=== PATIENT | male | born 1925 ===

== ENCOUNTER 2016-07-09 07:56 | Inpatient (IN) | payer BC ==
[2016-07-08 11:38] LABS: BASOPHILS 0.4 %; BASOPHILS ABSOLUTE 0.03 10/3/uL (0.0-0.16); EOSINOPHILS 1.6 %; EOSINOPHILS ABSOLUTE 0.12 10/3/uL (0.0-0.53); HEMATOCRIT 34.7 % (40.0-51.0); HEMOGLOBIN 11.3 g/dL (13.6-17.8); IMMATURE GRANULOCYTES 0.3 %; IMMATURE GRANULOCYTES ABSOLUTE 0.02 10/3/uL (0.0-0.11); LYMPHOCYTES 14.6 %; LYMPHOCYTES ABSOLUTE 1.08 10/3/uL (0.67-4.30); MEAN CORPUS HGB CONC 32.6 g/dL (32.0-36.0); MEAN CORPUSCULAR HEMOGLOB 29.7 pg (26.0-34.0); MEAN CORPUSCULAR VOLUME 91.3 fL (80-100); MEAN PLATELET VOLUME 8.2 fL (9.2-13.0); MONOCYTES 11.6 %; MONOCYTES ABSOLUTE 0.86 10/3/uL (0.21-1.20); NEUTROPHILS 71.5 %; NEUTROPHILS ABSOLUTE 5.28 10/3/uL (2.02-8.40); PLATELET COUNT 363 10/3/uL (150-400); WHITE BLOOD CELLS 7.4 10/3/uL (4.5-10.5)
[2016-07-08 11:39] LABS: MANUAL DIFF NO %; RBC DISTRIBUTION WIDTH 16.4 % (12.0-16.0)
[2016-07-08 11:44] LABS: PROTIME (NOT ORD) 13.4 SEC (12.0-14.5)
[2016-07-08 11:45] LABS: PARTIAL THROMBO TIME 29.9 SEC (22.5-37.2)
[2016-07-08 11:53] LABS: CALCIUM, SERUM 9.1 MG/DL (8.5-10.4); CHLORIDE, SERUM 103 MMOL/L (96-112); CO2 (CARBON DIOXIDE) 27 MMOL/L (24-34); CREATININE 0.54 MG/DL (0.70-1.30); GFR AFRICAN AMERICAN 108 ML/MIN (>=60); GFR NON AFRICAN AMERICAN 93 ML/MIN (>=60); GLUCOSE, SERUM 88 MG/DL (60-99); POTASSIUM, SERUM 4.4 MMOL/L (3.5-5.3); SODIUM, SERUM 137 MMOL/L (135-148)
[2016-07-08 11:57] LABS: BUN (BLOOD UREA NITROGEN) 7 MG/DL (6-23)
--- NOTE | ~2016-07-09 | PREOPHP ---
PreOp History and Physical [address] [place]. [address] NAME: CAPRICE SKELTON : [birth year] STATUS : PRE IN PAT#: [id number] AGE: 89 ADM/REG DATE : MR#: [id number] REPORT SERV DATE: 07/08/16 DICTATED BY: JAYA GALE DATE: 07/08/16 REPORT STATUS : Draft TRANSCRIBED BY: MODL DATE: 07/08/16 CHIEF COMPLAINT: Urinary retention. HISTORY OF PRESENT ILLNESS: Mr. Skelton is an 89-year-old white male, who developed urinary retention approximately two weeks ago. He failed a voiding trial. He was evaluated in my office and found to have a prostate measuring approximately 212 mL. Different options regarding his management were proposed to the patient. He has decided to proceed with a laparoscopic robot-assisted simple prostatectomy. He will be admitted after that procedure. The patient states that he was diagnosed with prostate cancer 25 years ago. He elected to treat it with dietary modifications. Since then, he has had no evidence of disease according to the patient. He has a long history of obstructive urinary symptoms leading up to the urinary retention. PAST MEDICAL HISTORY: Remarkably negative. PAST SURGICAL HISTORY: Tonsillectomy and herniorrhaphy. MEDICATIONS: None. ALLERGIES: NONE. SOCIAL HISTORY: Denies drug, alcohol, or tobacco abuse. FAMILY HISTORY: Unknown. 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 PHYSICAL EXAMINATION: GENERAL: Shows a well-developed, well-nourished thin white male, in no acute distress. He has excellent cognitive function. He is afebrile. He is completely ambulatory and self- sufficient. VITAL SIGNS: His vital signs are stable. NECK: Supple. LUNGS: Clear. HEART: Regular rate and rhythm. ABDOMEN: Soft and nontender. GENITOURINARY: Catheter in place draining clear urine. Testes descended, nontender. Prostate extremely large, smooth, no nodules. LOWER EXTREMITIES: No deformities. IMPRESSION: Massive benign prostatic hypertrophy in an 89-year-old male with possible history of prostate cancer. PLAN: Laparoscopic robot-assisted simple prostatectomy. Potential complications of bleeding, infection, urinary incontinence, bladder neck obstruction, loss of ejaculate, PreOp History and Physical [address] [address] NAME: CAPRICE SKELTON : [birth year] STATUS : PRE IN PAT#: [id number] AGE: 89 ADM/REG DATE : MR#: [id number] REPORT SERV DATE: 07/08/16 DICTATED BY: JAYA GALE DATE: 07/08/16 REPORT STATUS : Draft TRANSCRIBED BY: MODL DATE: 07/08/16 erectile dysfunction, and injury to adjacent structures such as bladder, ureters, rectum, colon, intestine, nerves, as well as bowel obstruction, complications have all been explained to the patient. He both manually and verbally consents to proceed. PF/MODL Jaya Gale M.D. / [id number] CC: Bob Nagel JOHN C.
--- NOTE | ~2016-07-09 | DS ---
Discharge Summary [facility] [address] [facility] [place]. [address] NAME: CAPRICE BOLANOS : [birth year] STATUS : DIS IN PAT#: [id number] AGE: 89 ADM/REG DATE : 07/09/16 MR#: [id number] REPORT SERV DATE: 07/14/16 DICTATED BY: TRAVIS GALE DATE: 07/13/16 REPORT STATUS : Draft TRANSCRIBED BY: MODL DATE: 07/13/16 ADMISSION DATE: 07/09/2016 DISCHARGE DATE: 07/13/2016 DIAGNOSES: 1. Urinary retention. 2. Massive benign prostatic hypertrophy. 3. Postoperative bleeding (blood loss anemia). PROCEDURES DURING THIS HOSPITALIZATION: 1. Laparoscopic robot-assisted simple prostatectomy. 2. Cystoscopy, fulguration of prostatic fossa, re-exploration laparoscopic robot clot evacuation for prostatic fossa. HISTORY OF PRESENT ILLNESS: For complete history of present illness, please see dictated H and P. HOSPITAL COURSE: The patient underwent the laparoscopic robot-assisted simple prostatectomy on the afternoon of 07/09/2016. In recovery room, he developed some pretty significant postoperative bleeding. He was returned to the operating room, where he underwent cystoscopy. Fulgurated the bleeders, but this failed to clear him. I re-explored laparoscopically/robotically. I evacuated quite a bit of clot blood from the bladder and the prostatic fossa. I over sewed much of the prostatic capsule. This seemed to control the oozing/bleeding. He stabilized after that point. He ended up receiving a total of 5 units packed red blood cells, a 6 pack a platelet, 2 units of fresh frozen plasma. He was left intubated overnight because of the prolonged surgery. He was in the intensive care unit. The morning following surgery, his urine remained clear on continuous bladder irrigation. He was awakened and extubated. He recovered without incident from that point forward. He stayed one-day in the ICU and was transferred to floor. The Joey drain had little output so it was removed. The continuous bladder irrigation was weaned. On the day of surgery, the urine was clear off continuous bladder irrigation. He was on a regular diet. His H and H were stable at around 8.5 and 24. Discharge medications are going to be Tylenol #3 one p.o. q.4 hours p.r.n. pain, dispensed #14. Follow up will be in two weeks with Dr. Gale for catheter removal. Instructions, no driving. His pathology revealed 136 g benign adenoma. PF/MODL Travis Gale M.D. / [id number] CC: Discharge Summary [address] [place] [address] NAME: CAPRICE BOLANOS : [birth year] STATUS : DIS IN PAT#: [id number] AGE: 89 ADM/REG DATE : 07/09/16 MR#: [id number] REPORT SERV DATE: 07/14/16 DICTATED BY: TRAVIS GALE DATE: 07/13/16 REPORT STATUS : Draft TRANSCRIBED BY: KYAW DATE: 07/13/16 Bob Nagel
--- NOTE | ~2016-07-09 | OP ---
Record Of Operation [facility] [address] [place]. [address] NAME: CAPRICE BOLANOS : [birth year] STATUS : ADM IN PAT#: [id number] AGE: 89 ADM/REG DATE : 07/09/16 MR#: [id number] REPORT SERV DATE: 07/09/16 DICTATED BY: JAYA GALE DATE: 07/09/16 REPORT STATUS : Draft TRANSCRIBED BY: MODL DATE: 07/09/16 DATE OF PROCEDURE: 07/09/2016 PREOPERATIVE DIAGNOSES: Urinary retention and massive benign prostatic hypertrophy. POSTOPERATIVE DIAGNOSES: Urinary retention and massive benign prostatic hypertrophy. PROCEDURE: Laparoscopic robot-assisted simple prostatectomy. SURGEON: Jaya Gale M.D. ENTERTAINMENT PRODUCTION PROFESSIONAL: Emile Harry. ANESTHESIA: General and local. ESTIMATED BLOOD LOSS: 250 mL. FLUID REPLACEMENT: 3 L of crystalloid. DRAINS: A 24-Kuwaiti three-way Gale catheter with 45 mL of sterile water inflated in the catheter balloon and a 15-mm Joey drain in the prevesical space. INDICATION: An 89-year-old male with urinary retention and prostate measuring over [address] scan. TECHNIQUE: The patient was identified and brought to the operating room, administered general anesthetic agent by the Anesthesia Service and intubated. He was positioned in the dorsal lithotomy position. The entire abdomen, penis, groin, scrotum, and perineum were prepped and draped in usual sterile fashion. Marcaine 0.5% plain was used to infiltrate all laparoscopic port sites. A 4-cm skin incision was made above the umbilicus, carried down to the rectus fascia. Holding sutures were placed in the rectus fascia and the fascia was incised transversely. The underlying peritoneum was identified and opened sharply. A balloon trocar was placed in the peritoneal space and a pneumoperitoneum was created by insufflating carbon dioxide. The abdominal pressure was raised to 15 mmHg and held there through the entire case until otherwise specified. Three robot arm ports and two pediatric medical assistant ports were placed under direct laparoscopic vision while the patient was in steep Trendelenburg. Once the ports were in position, the da Zakiya robot was brought to the table and mated to the ports. A 16-Kuwaiti Gale catheter had been passed in the bladder. I divided the median umbilical ligaments and urachus near the umbilicus. I swept the bladder off the anterior abdominal wall and symphysis pubis. I opened the peritoneum just lateral to the median umbilical ligaments on each side of the vasa deferentia bilaterally. An anterior cystotomy was made. Holding sutures were placed in the left and right side of the detrusor muscle. The bladder was opened and inspected. There was a large prostate, not Record Of Operation [address] [place]. [address] NAME: CAPRICE BOLANOS : [birth year] STATUS : ADM IN PAT#: [id number] AGE: 89 ADM/REG DATE : 07/09/16 MR#: [id number] REPORT SERV DATE: 07/09/16 DICTATED BY: JAYA GALE DATE: 07/09/16 REPORT STATUS : Draft TRANSCRIBED BY: KYAW DATE: 07/09/16 much of it was intravesical. The ureteral orifices were identified. The bladder was severely trabeculated. I cauterized the epithelium circumferentially around the bladder neck with a Bovie cautery. I then dissected down into the capsule through the adenoma to the capsule of the prostate circumferentially. I mobilized the prostate circumferentially and all the way out to the apex. I eventually came across the urethra sharply. The adenoma was delivered out of the wound. It was placed in a specimen retrieval bag and held for later retrieval. I lowered the abdominal pressure down to 7 mmHg. I over sew some bleeders along the lateral borders of the prostatic capsule and at the posterior pedicles bilaterally. I also suture ligate anteriorly. I used a 3-0 PDS and 3-0 Monocryl. Once fastidious hemostasis had been achieved, I inserted a new 24-Kuwaiti three-way Gale catheter and positioned the balloon into the prostatic fossa. I closed the urothelium of the cystotomy with running 3-0 V-Loc. I then closed the detrusor with running 2-0 V-Loc. I filled the bladder with 240 mL of saline. It held without extravasation. I then connected to normal saline continuous bladder irrigation. A 45 mL of sterile water inflated to catheter balloon. The instruments were taken out of the robot arm port and a 15-mm Joey drain was placed through that port. I lowered the abdominal pressure down to 7 mmHg when I was obtaining hemostasis. The instrument was taken out of the robotic arm port. A 15-mm Joey drain was placed through that port. It was left in the prevesical space and the port was removed. The drain was sutured to skin with 2-0 Prolene. The da Zakiya robot was undocked. I transferred the strings of the specimen bag out through the umbilical port. The pediatric medical assistant 12-mm port was removed and the fascia there was closed with Dejuan-Memo endoscopic closure system. All the ports were removed under low pressure. No port site bleeding was noted. I had to extend my transverse incision in the fascia by 3 cm in each direction. I then delivered the specimen out through the wound. I closed the fascia with [id number] 0 Vicryl sutures. The subcutaneous tissue of all ports was irrigated copiously. The skin of all ports was closed with 4-0 Monocryl. Dressings were applied. The catheter was secured. The patient was awakened and taken to the recovery unit in stable and satisfactory condition. PF/MODL Jaya Gale M.D. / [id number] CC: Bob Nagel JOHN C.
--- NOTE | ~2016-07-09 | OP ---
Record Of Operation [facility] [address] [place]. [address] NAME: CAPRICE SKELTON : [birth year] STATUS : ADM IN PAT#: [id number] AGE: 89 ADM/REG DATE : 07/09/16 MR#: [id number] REPORT SERV DATE: 07/10/16 DICTATED BY: JAYA GALE DATE: 07/10/16 REPORT STATUS : Draft TRANSCRIBED BY: MODL DATE: 07/10/16 DATE OF PROCEDURE: 07/09/2016 PREOPERATIVE DIAGNOSIS: Postoperative bleeding (status post laparoscopic robot-assisted simple prostatectomy). POSTOPERATIVE DIAGNOSIS: Postoperative bleeding (status post laparoscopic robot-assisted simple prostatectomy). PROCEDURE: 1. Cystoscopy with fulguration of prostatic fossa. 2. Re-exploration robotic laparoscopy with evacuation of clot from prostatic fossa and over-sew of bleeding vessels. SURGEON: Jaya Gale M.D. JUNIOR MANUFACTURING ENGINEER: Ciara Fleming. ANESTHESIA: General. BLOOD LOSS: Total estimated at 600 mL. FLUIDS: 1.2 L of crystalloid, 5 units packed red blood cells, 4 units of fresh frozen plasma, and 6-pack of platelets with 60 mg of Lasix IV. INDICATION: Mr. Skelton is an 89-year-old male, who had a laparoscopic robot-assisted simple prostatectomy earlier in the day on 07/09/2016. At the end of that procedure, the urine developed some fairly significant hematuria while on continuous bladder irrigation. Conservative measures of inflating the more fluid into the balloon and placing it on traction did not relieve the bleeding. It is felt to be significant enough to return to the operating room. STEPS: We returned up to the operating room, and I proceeded with cystoscopy. Really, there were no significant findings on cystoscopy. He was clear at the end of cystoscopy, but rather shortly before being extubated became bloody again. We again went through some conservative measures of traction and digital pressure through the rectum. These failed to keep him clear, so I re-explored him. On re-exploration, really found quite a bit of blood in the prostatic fossa, but no active arterial bleeding. I over-sewed many areas in the prostatic fossa. TECHNIQUE: The patient was brought to the operating room. Gale catheter was removed. He was intubated and placed into the dorsal lithotomy position. The penis, groin, scrotum, and perineum were prepped and draped in the usual sterile fashion. A 28-Colombian continuous flow resectoscope was placed into the bladder with an obturator. The obturator was removed and the George resectoscope with the rollerball was inserted. Inside the prostatic fossa, there was blood. I used the Truveris evacuators and evacuated quite a bit of blood out of the Record Of Operation [address] [place]. [address] NAME: CAPRICE SKELTON : [birth year] STATUS : ADM IN PAT#: [id number] AGE: 89 ADM/REG DATE : 07/09/16 MR#: [id number] REPORT SERV DATE: 07/10/16 DICTATED BY: JAYA GALE DATE: 07/10/16 REPORT STATUS : Draft TRANSCRIBED BY: KYAW DATE: 07/10/16 prostatic fossa. I then inspected and there was a constant amount blood in the field, but no arterial bleeding. No visualized area of bleeding. I used the rollerball and cauterized different areas along the prostatic capsule. I inspected the bladder neck closely and inspected the bladder as well. I see no bleeding coming from there. When complete, the urine is clear. I removed the resecting sheath and placed a 24-Colombian three-way Gale catheter. I inserted 30 mL of sterile water into the catheter balloon, connected to continuous bladder irrigation. It runs clear for a while, but then rather suddenly becomes quite bloody again. The patient had not yet been extubated. After manually irrigating him clear again and using digital rectal pressure, the bleeding persisted. At this point, I did not feel we needed to re-explore. He was then transferred onto the robotic bed and repositioned into the lithotomy position. He was appropriately padded and secured to the table. The Gale catheter was removed. The entire lower abdomen, penis, groin, scrotum, and perineum were re-prepped and draped in usual sterile fashion. I opened all the previous incisions and replaced the trocars. Pneumoperitoneum was created. I put the da Zakiya laparoscope through the trocar. Inside the belly, there was virtually no blood, minimal fluid, but there was swelling of the intestines. I docked with da Zakiya robot and opened the bladder by opening the previously closed anterior cystotomy. There was quite a bit of blood in the bladder and this was sucked and irrigated clear. Once I evacuated all the blood, I very closely inspected the prostatic capsule. I did this with the pressure initially elevated at 15 mmHg. I see no bleeding at 15. I over-sew an area of "ooze" on the right posterior prostatic capsule near the posterior pedicle. I oversew anteriorly. I used a 30 degree up lens and a 30-degree down lens. I also oversewed part of the floor of the prostate near the bladder neck and anteriorly on the capsule. I bring the pressure all the way down to 3 mmHg, I inspected for bleeding. I see no bleeding at 3 mmHg with both the 30 up and 30 down lens. Once I am satisfied that I have done everything I can to stop the bleeding, I reinserted new 24-Colombian three-way Gale catheter. 15 mL of sterile water inflated into the catheter balloon. The bladder was then closed in two layers with 2-0 V- Loc. I then added another 15 mL of sterile water to the catheter balloon, began continuous bladder irrigation, it remained clear. The instruments taken out of the robot arm port and I reinserted a Joey drain through this port. The ports removed and the drain sutured to skin with 2-0 Prolene. I irrigated much of the blood out of the belly that I can. I then removed the ports under low pressure. No port site bleeding. I closed the assistance port with a Dejuan-Memo endoscopic closure system. I closed the midline umbilical port with [id number] 0 Vicryl sutures. The subcutaneous tissue of all ports irrigated copiously. I closed the skin with skin elton. The patient was then left intubated and taken to the ICU in guarded condition. PF/MODL Jaya Gale M.D. / [id number] CC: Record Of Operation [address] [place]. [address] NAME: CAPRICE SKELTON ELINA : [birth year] STATUS : ADM IN PAT#: [id number] AGE: 89 ADM/REG DATE : 07/09/16 MR#: [id number] REPORT SERV DATE: 07/10/16 DICTATED BY: JAYA GALE DATE: 07/10/16 REPORT STATUS : Draft TRANSCRIBED BY: KYAW DATE: 07/10/16 Jaya Gale M.D. Steve Oseguera
--- NOTE | ~2016-07-09 | CN ---
Consultation Report [facility] [address] [place]. [address] NAME: CAPRICE SKELTON : [birth year] STATUS : ADM IN [facility]#: [id number] AGE: 89 ADM/REG DATE : 07/09/16 MR#: [id number] REPORT SERV DATE: 07/10/16 DICTATED BY: UNRULY HOWARD DATE: 07/10/16 REPORT STATUS : Draft TRANSCRIBED BY: MODL DATE: 07/10/16 CONSULTATION DATE OF CONSULTATION: 07/10/2016 TIME: 2405 hours. Seen in MICU bed 11. HISTORY OF PRESENT ILLNESS: Mr. Skelton is an 89-year-old white male, who developed urinary retention, went to the OR, had a very enlarged prostate removed. Post-removal, he began to have some bleeding, went back and underwent robotic surgery and after cystoscopy for control of bleeding, which was done and now in the Medical ICU. The anesthesia record revealed he had approximately 5 units of blood, one six-pack of platelets, 5 units of FFP. He did have some Lasix given. He had estimated blood loss 600 mL and no measurable urinary output. Currently, on no pressors. He comes to the ICU on mechanical ventilator. PAST MEDICAL HISTORY: Significant for possible prostate cancer of 25 years ago. No other significant medical issues. He had tonsillectomy and herniorrhaphy in the past. MEDICATIONS: No medications. ALLERGIES: HE HAS NO KNOWN ALLERGIES. REVIEW OF SYSTEMS: Otherwise negative. Noncontributory. SOCIAL HISTORY: Does not smoke or drink. 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 PHYSICAL EXAMINATION: GENERAL: On examination, he is sedated, orally intubated. VITAL SIGNS: Blood pressure 107/67, pulse 62, afebrile. HEENT: Head is normocephalic. Sclerae and conjunctivae are clear. NECK: Supple. CHEST: Clear to auscultation and percussion. No wheezing or rhonchi. CARDIAC: S1 and S2. No murmurs or gallops. ABDOMEN: Soft. Laparoscopic incision sites seen. EXTREMITIES: No clubbing, cyanosis, or edema. Pulses palpable. NEUROLOGIC: As far as I can tell, he is grossly intact, although still coming up from anesthesia. LABORATORY: At 2120 hours on 07/09/2016, showed a sodium of 128, potassium 4.3, chloride 96, CO2 of 22, BUN 10, creatinine 0.56, glucose 150, calcium 6.8. H and H 9.1 and 26.4, white count 16,500, platelet count 225,000, 76 polys, 16 bands. PTT 39.1, INR 1.5. He had 2 more units of fresh frozen last night. Chest x-ray is pending. Consultation Report [address] [place] [facility] [place]. [address] NAME: CAPRICE SKELTON : [birth year] STATUS : ADM IN PAT#: [id number] AGE: 89 ADM/REG DATE : 07/09/16 MR#: [id number] REPORT SERV DATE: 07/10/16 DICTATED BY: UNRULY HOWARD DATE: 07/10/16 REPORT STATUS : Draft TRANSCRIBED BY: KYAW DATE: 07/10/16 IMPRESSION: Postop mechanical ventilation, status post robotic prostatectomy with irrigation now. I have received 5 units of packed cells, platelets, and some FFP. PLAN: We will be continued on ventilator as tolerated. RP/KYAW Unruly Howard M.D. / [id number] CC: Bob Nagel
[~2016-07-09 07:56] MED LIST: CURCUMIN PO; PROBIOTIC PO; VITAMIN B-122500 MCG SL; VITAMIN D31000 UNIT PO; ZINC220C PO; ZOVIRAX400 MG PO; [UNRECOGNIZED DRUG - REMARK]
[2016-07-09 16:51] LABS: HEMATOCRIT 25.6 % (40.0-51.0); HEMOGLOBIN 8.6 g/dL (13.6-17.8)
[2016-07-09 21:34] LABS: HEMATOCRIT 26.4 % (40.0-51.0); HEMOGLOBIN 9.1 g/dL (13.6-17.8); MEAN CORPUSCULAR HEMOGLOB 30.3 pg (26.0-34.0); MEAN PLATELET VOLUME 8.3 fL (9.2-13.0); RBC DISTRIBUTION WIDTH 15.1 % (12.0-16.0)
[2016-07-09 21:36] LABS: MEAN CORPUS HGB CONC 34.5 g/dL (32.0-36.0); PLATELET COUNT 225 10/3/uL (150-400); WHITE BLOOD CELLS 16.5 10/3/uL (4.5-10.5)
[2016-07-09 21:37] LABS: MANUAL DIFF YES %
[2016-07-09 21:38] LABS: INTERNATIONAL NORMAL RATI 1.5 UNITS (-); PARTIAL THROMBO TIME 39.1 SEC (22.5-37.2)
[2016-07-09 21:40] LABS: PROTIME (NOT ORD) 18.1 SEC (12.0-14.5)
[2016-07-09 21:42] LABS: BUN (BLOOD UREA NITROGEN) 10 MG/DL (6-23); CHLORIDE, SERUM 96 MMOL/L (96-112); CO2 (CARBON DIOXIDE) 22 MMOL/L (24-34); CREATININE 0.56 MG/DL (0.70-1.30); GFR AFRICAN AMERICAN 106 ML/MIN (>=60); GFR NON AFRICAN AMERICAN 92 ML/MIN (>=60); GLUCOSE, SERUM 150 MG/DL (60-99); POTASSIUM, SERUM 4.3 MMOL/L (3.5-5.3); SODIUM, SERUM 128 MMOL/L (135-148)
[2016-07-09 21:43] LABS: CALCIUM, SERUM 6.8 MG/DL (8.5-10.4)
[2016-07-09 22:27] LABS: BAND NEUTROPHILS 16 %; LYMPHOCYTES 5 %; LYMPHOCYTES ABSOLUTE (CALC) 0.83 10/3/uL (0.67-4.30); MONOCYTES 3 %; NEUTROPHILS ABSOLUTE (CALC) 15.18 10/3/uL (2.02-8.40); PLATELET ESTIMATE ADQ (ADEQUATE); RBC MORPHOLOGY NORM (NORMAL); SEGMENTED NEUTROPHIL (0) 76 %; TOTAL NUCLEATED CELLS 100
[2016-07-10 02:44] LABS: BE (BASE EXCESS) -4.2 MEQ/L (0 +/- 2.5); CARBOXYHEMOGLOBIN 0.3 % (0-3); HEMOBLOGIN CONTENT 9.6 G/DL (14-18); INSTRUMENT SERIAL # 8083; METHEMOGLOBIN 0.2 % (0-3); O2 CONTENT 14.8 VOL% (18-24); OPERATOR ID 32193; PCO2 (CO2 TENSION) 39 MMHG (35-45); PO2 (O2 TENSION) 497 MMHG (79-93); SAMPLE Arterial; pH 7.35 (7.37-7.43)
[2016-07-10 04:33] LABS: BASOPHILS 0.1 %; BASOPHILS ABSOLUTE 0.01 10/3/uL (0.0-0.16); EOSINOPHILS 0.1 %; EOSINOPHILS ABSOLUTE 0.01 10/3/uL (0.0-0.53); HEMATOCRIT 31.9 % (40.0-51.0); HEMOGLOBIN 11.4 g/dL (13.6-17.8); IMMATURE GRANULOCYTES 0.3 %; IMMATURE GRANULOCYTES ABSOLUTE 0.03 10/3/uL (0.0-0.11); LYMPHOCYTES ABSOLUTE 0.39 10/3/uL (0.67-4.30); MEAN CORPUS HGB CONC 35.7 g/dL (32.0-36.0); MEAN CORPUSCULAR VOLUME 86.7 fL (80-100); MEAN PLATELET VOLUME 8.5 fL (9.2-13.0); MONOCYTES 4.3 %; MONOCYTES ABSOLUTE 0.42 10/3/uL (0.21-1.20); NEUTROPHILS 91.2 %; NEUTROPHILS ABSOLUTE 9.01 10/3/uL (2.02-8.40); PLATELET COUNT 204 10/3/uL (150-400); RBC DISTRIBUTION WIDTH 14.6 % (12.0-16.0); RED CELL COUNT 3.68 10/6/uL (4.7-6.1); WHITE BLOOD CELLS 9.9 10/3/uL (4.5-10.5)
[2016-07-10 04:34] LABS: INTERNATIONAL NORMAL RATI 1.3 UNITS (-); MANUAL DIFF NO %; PARTIAL THROMBO TIME 32.2 SEC (22.5-37.2); PROTIME (NOT ORD) 16.4 SEC (12.0-14.5)
[2016-07-10 04:51] LABS: CALCIUM, SERUM 7.6 MG/DL (8.5-10.4); CHLORIDE, SERUM 95 MMOL/L (96-112); CO2 (CARBON DIOXIDE) 26 MMOL/L (24-34); CREATININE 0.86 MG/DL (0.70-1.30); GFR AFRICAN AMERICAN 89 ML/MIN (>=60); GFR NON AFRICAN AMERICAN 77 ML/MIN (>=60); SODIUM, SERUM 134 MMOL/L (135-148)
[2016-07-10 04:52] LABS: BUN (BLOOD UREA NITROGEN) 14 MG/DL (6-23); GLUCOSE, SERUM 236 MG/DL (60-99); POTASSIUM, SERUM 3.3 MMOL/L (3.5-5.3)
[2016-07-10 10:03] LABS: POTASSIUM, SERUM 3.9 MMOL/L (3.5-5.3)
[2016-07-11 05:51] LABS: BASOPHILS 0.1 %; BASOPHILS ABSOLUTE 0.01 10/3/uL (0.0-0.16); EOSINOPHILS 0 %; HEMATOCRIT 23.3 % (40.0-51.0); HEMOGLOBIN 8.1 g/dL (13.6-17.8); IMMATURE GRANULOCYTES 0.1 %; IMMATURE GRANULOCYTES ABSOLUTE 0.01 10/3/uL (0.0-0.11); LYMPHOCYTES 7.4 %; LYMPHOCYTES ABSOLUTE 0.59 10/3/uL (0.67-4.30); MANUAL DIFF NO %; MEAN CORPUS HGB CONC 34.8 g/dL (32.0-36.0); MEAN CORPUSCULAR VOLUME 86.3 fL (80-100); MEAN PLATELET VOLUME 8.8 fL (9.2-13.0); MONOCYTES 8.2 %; MONOCYTES ABSOLUTE 0.65 10/3/uL (0.21-1.20); NEUTROPHILS 84.2 %; NEUTROPHILS ABSOLUTE 6.71 10/3/uL (2.02-8.40); PLATELET COUNT 210 10/3/uL (150-400); RBC DISTRIBUTION WIDTH 15.1 % (12.0-16.0)
[2016-07-11 06:01] LABS: BUN (BLOOD UREA NITROGEN) 13 MG/DL (6-23); CALCIUM, SERUM 7.7 MG/DL (8.5-10.4); CO2 (CARBON DIOXIDE) 27 MMOL/L (24-34); CREATININE 0.62 MG/DL (0.70-1.30); GFR AFRICAN AMERICAN 102 ML/MIN (>=60); GFR NON AFRICAN AMERICAN 88 ML/MIN (>=60); POTASSIUM, SERUM 4.2 MMOL/L (3.5-5.3); SODIUM, SERUM 140 MMOL/L (135-148)
[2016-07-11 06:03] LABS: CHLORIDE, SERUM 106 MMOL/L (96-112); GLUCOSE, SERUM 120 MG/DL (60-99)
[2016-07-12 05:26] LABS: HEMATOCRIT 23.9 % (40.0-51.0); HEMOGLOBIN 8.2 g/dL (13.6-17.8)
[2016-07-13 06:55] LABS: HEMATOCRIT 24.5 % (40.0-51.0); HEMOGLOBIN 8.5 g/dL (13.6-17.8)
[2016-07-13] MEDS ORDERED: T3 PO (09:34)
[2016-10-28] MEDS ORDERED: CIP5 PO (09:57)
== END 2016-07-13 12:31 | disposition home or self-care (01) | DRG 707 ==
LOC: SDC/OF 07:56 → MIC 07-10 00:04 → 4SO 07-11 14:29
PROVIDERS: Internal Medicine Critical Care Medicine; Urology
PROC: 0BH17EZ Insertion of Endotracheal Airway into Trachea, Via Natural or Artificial Opening (ICD-10-PCS; 2016-07-09)
PROC: 0W3R4ZZ Control Bleeding in Genitourinary Tract, Percutaneous Endoscopic Approach (ICD-10-PCS; 2016-07-09)
PROC: 0W3R8ZZ Control Bleeding in Genitourinary Tract, Via Natural or Artificial Opening Endoscopic (ICD-10-PCS; 2016-07-09)
PROC: 0VT04ZZ Resection of Prostate, Percutaneous Endoscopic Approach (ICD-10-PCS; principal; 2016-07-09 11:00)
PROC: 8E0W4CZ Robotic Assisted Procedure of Trunk Region, Percutaneous Endoscopic Approach (ICD-10-PCS; 2016-07-09 17:15)
PROC: 5A1945Z Respiratory Ventilation, 24-96 Consecutive Hours (ICD-10-PCS; 2016-07-09 17:15)
DX: N40.1 Benign prostatic hyperplasia with lower urinary tract symptoms (principal); N99.821 Postprocedural hemorrhage of a genitourinary system organ or structure following other procedure; N13.8 Other obstructive and reflux uropathy; G47.00 Insomnia, unspecified; Z85.46 Personal history of malignant neoplasm of prostate; Z98.890 Other specified postprocedural states; R33.8 Other retention of urine
CPT/HCPCS: 31720; 36415; 36600; 71010; 74000; 80048; 82805; 83051; 83735; 84132; 85014; 85018; 85025; 85610; 85730; 86850; 86900; 86901; 86920; 87641; 88307; 93005; 94002; 94003; 94660; 97161-GP; A9270-GY; C9113; J0690; J2405; J2710; J3010; J3475; P9016; P9035; P9059; Q9967